=== PATIENT | female | born 1990 | race African-American/Black ===

== ENCOUNTER 2019-05-16 04:19 | Emergency (ER) | payer OTHER ==
[~2019-05-16] VITALS: Ht 165.1 cm; Wt 68.0 kg
--- NOTE | 2019-05-16 04:35 | NUR ---
patient came from home with chief complaint of laceration to left middle finger while cookig 2 days ago.
--- NOTE | 2019-05-16 04:41 | NUR ---
Dr. henderson at bedside for evaluation
[2019-05-16] MEDS ORDERED: TDAP DIPH,PERTUSS,TET VAC/PF 0.5 ML DISP.SYRIN IM ONE (04:59)
[2019-05-16] MEDS ORDERED: NEOMY/BACITRA/POLYMYXIN B OINT UD PACKET TP ONE (05:08)
[2019-05-16] MEDS: TDAP DIPH,PERTUSS,TET VAC/PF 0.5 ML DISP.SYRIN IM ONE (05:16)
[2019-05-16] MEDS: NEOMY/BACITRA/POLYMYXIN B OINT UD PACKET TP ONE (05:17)
--- NOTE | 2019-05-16 05:17 | NUR ---
Patient discharged to home in stable conditon. Written and verbal after care instructions given. Patient verbalizes understanding of instructions. patient alert and oriented x4. patient self ambulatory with steady gait. Exit care package and personal belonings taken home with the patient at discharge. Patient denies any pain/discomfort at this time. Education provided prior to discharge.
[2019-05-16 05:18] VITALS: BP 104/71
== END 2019-05-16 05:19 | disposition home or self-care (01) ==
LOC: ER 04:33
DX: S61.303A Unspecified open wound of left middle finger with damage to nail, initial encounter (principal); K21.9 Gastro-esophageal reflux disease without esophagitis; W26.0XXA Contact with knife, initial encounter; Y93.89 Activity, other specified; Y92.89 Other specified places as the place of occurrence of the external cause; Y99.8 Other external cause status
CPT/HCPCS: 90715; A4663